=== PATIENT | male | born 1975 | race Caucasian/White ===

== ENCOUNTER 2020-04-24 11:37 | Outpatient (CLI) | payer BC, MEDICAID, SELFPAY ==
[2020-04-24 12:04] LABS: Hematocrit 45.8 % (40.0-54.0); Hemoglobin 15.7 g/dL (14.0-18.0); Mean Corpuscular HGB Conc 34.3 g/dL (32.0-36.0); Mean Corpuscular Hemoglobin 28.7 pg (27.0-31.0); Mean Corpuscular Volume 83.7 fL (78.0-102.0); Mean Platelet Volume 9.9 fl (8.7-11.0); Platelet Count Result 172 K/mm3 (150-420); Red Blood Count 5.47 M/mm3 (4.70-6.10); Red Cell Distribution Width 13.2 % (11.6-14.4); White Blood Count 3.4 K/mm3 (4.8-10.8)
[2020-04-24 12:08] LABS: Add Urine Microscopic? YES; Appearance Urine Clear (Clear); Bilirubin Urine Negative (Negative); Blood Urine Negative (Negative); Color Urine Yellow (Yellow); Glucose Urine UA 3+ (Negative); Ketones Urine 2+ (Negative); Leukocyte Esterase Ur Negative (Negative); Nitrate Urine Negative (Negative); Protein Urine Trace (Negative); Specific Grav Ur 1.015 (1.010-1.020); Urobilinogen Urine 0.2 mg/dL (0.2-1.0)
[2020-04-24 12:24] LABS: Bacteria Urine None seen /hpf; RBC Urine None seen /hpf (0-2); Squamous Epithelial Cell Urine Rare /hpf (Few); WBC Urine None seen /hpf (0-3)
[2020-04-24 12:40] LABS: Band Neutrophils Percent 0 % (0-6); Basophils Percent Manual 0 % (0-1); Eosinophils Percent Manual 0 % (1-6); Lymphocytes Absolute Manual 1.15 K/mm3 (1.1-4.5); Lymphocytes Percent Manual 34 % (18-44); Monocytes Percent Manual 12 % (3-9); Neutrophils Absolute Manual 1.83 K/mm3 (1.3-6.7); Neutrophils Percent Manual 54 % (46-73); Total Cells Counted 100
[2020-04-24 12:41] LABS: Platelet Estimate Adequate (Adequate)
[2020-04-24 12:57] LABS: Hemoglobin A1C 12.1 % (<5.7)
[2020-04-24 13:03] LABS: MALB Creatinine Ratio 277.7 mg/g (0-30); Microalbumin Urine Random 133.3 mg/L
[2020-04-24 13:25] LABS: Alanine Aminotransferase 224 U/L (16-63); Albumin Level 3.7 g/dL (3.4-5.0); Alkaline Phosphatase 121 U/L (46-116); Anion Gap 9.6 mmol/L (7-16); Aspartate Amino Transferase 189 U/L (15-37); Bilirubin,Total 1.7 mg/dL (0.00-1.00); Blood Urea Nitrogen 9 mg/dL (7-18); Calcium 8.4 mg/dL (8.5-10.1); Carbon Dioxide 35 mmol/L (21-32); Chloride 97 mmol/L (98-108); Cholesterol 145 mg/dL (0-200); Estimated Glomerular Filt Rate > 60; Glucose 333 mg/dL (70-99); HDL Direct 34 mg/dL (40-60); LDL Cholesterol Calculated 91 mg/dL (<130); Osmolality Calculated 297 mOsm/kg (285-295); Potassium 3.6 mmol/L (3.5-5.1); Sodium 138 mmol/L (136-145); Thyroid Stimulating Hormone 1.39 uIU/mL (0.36-3.74); Total Protein 6.6 g/dL (6.4-8.2); Triglycerides 102 mg/dL (0-150)
== END 2020-04-24 11:38 | disposition home or self-care (01) ==
LOC: CHSLAB 11:42
PROVIDERS: PCP Family Medicine; Visit Provider Family Medicine
DX: E78.2 Mixed hyperlipidemia (principal); E11.9 Type 2 diabetes mellitus without complications; I10 Essential (primary) hypertension; D64.9 Anemia, unspecified
CPT/HCPCS: 36415; 80053; 80061; 81001; 82043; 83036; 84443; 85025

== ENCOUNTER 2021-01-21 10:31 | Outpatient (CLI) | payer BC, MEDICAID, SELFPAY ==
[2021-01-21 10:47] LABS: Basophils Absolute Auto 0.02 K/mm3 (0.00-0.10); Basophils Percent Auto 0.5 % (0.0-1.0); Eosinophils Absolute Auto 0.14 K/mm3 (0.02-0.50); Eosinophils Percent Auto 3.4 % (1.0-6.0); Hematocrit 42.6 % (40.0-54.0); Hemoglobin 14.4 g/dL (14.0-18.0); Immature Granulocyte Absolute 0.01 K/mm3 (0.00-0.00); Immature Granulocyte Percent A 0.2 % (0.0-0.0); Lymphocytes Absolute Auto 1.39 K/mm3 (1.10-4.50); Lymphocytes Percent Auto 33.6 % (18.0-42.0); Mean Corpuscular HGB Conc 33.8 g/dL (32.0-36.0); Mean Corpuscular Hemoglobin 29.2 pg (27.0-31.0); Mean Corpuscular Volume 86.4 fL (78.0-102.0); Monocytes Absolute Auto 0.42 K/mm3 (0.10-0.90); Monocytes Percent Auto 10.1 % (2.0-11.0); Neutrophils Absolute Auto 2.2 K/mm3 (1.7-7.2); Neutrophils Percent Auto 52.2 % (50.0-70.0); Platelet Count Result 205 K/mm3 (150-420); Red Blood Count 4.93 M/mm3 (4.70-6.10); Red Cell Distribution Width 14.1 % (11.6-14.4); White Blood Count 4.1 K/mm3 (4.8-10.8)
[2021-01-21 11:56] LABS: Alanine Aminotransferase 82 U/L (16-63); Albumin Level 4.1 g/dL (3.4-5.0); Alkaline Phosphatase 82 U/L (46-116); Anion Gap 10 mmol/L (8-16); Aspartate Amino Transferase 44 U/L (15-37); Bilirubin,Total 1.5 mg/dL (0.00-1.00); Blood Urea Nitrogen 11 mg/dL (7-18); Calcium 8.5 mg/dL (8.5-10.1); Carbon Dioxide 33 mmol/L (21-32); Chloride 101 mmol/L (98-108); Estimated Glomerular Filt Rate > 60; Glucose 134 mg/dL (70-99); Osmolality Calculated 299 mOsm/kg (285-295); Potassium 3.2 mmol/L (3.5-5.1); Sodium 144 mmol/L (136-145); Total Protein 6.9 g/dL (6.4-8.2)
[2021-01-21 16:49] LABS: Bilirubin Direct 0.3 mg/dL (0-0.2)
== END 2021-01-21 10:32 | disposition home or self-care (01) ==
LOC: CHSLAB 10:34
PROVIDERS: PCP Family Medicine; Visit Provider Family Medicine
DX: E11.9 Type 2 diabetes mellitus without complications (principal); M79.89 Other specified soft tissue disorders
CPT/HCPCS: 36415; 80053; 82248; 83036; 85025

== ENCOUNTER 2022-07-29 07:51 | Outpatient (CLI) | payer OTHER, SELFPAY ==
--- NOTE | 2022-08-11 20:23 | WPDHOMESLEEP ---
Sleep Study - Home Unattended Date of Study: 07/29/22 Ordering Provider: Sunshine Fishman DO Interpreting Provider: Sunshine Fishman DO Home Sleep Study Type: Apnea Link Air Height: 1.7 m Weight: 167.829 kg Body Mass Index: 57.9 Neck Circumference (inches): 20 [place]: 5 Reason for Sleep Study Snoring, witnessed apneas Sleep History The patient is a 46-year-old male with anxiety, type 2 diabetes depression, hypertension and history of tobacco use had a sleep study ordered for evaluation sleep the patient denies awakening from sleep short of breath. He occasionally awakens at night with heartburn, belching or cough. He constantly snores and is frequently loud enough that others complain. He rarely has trouble sleeping when he has a cold. He denies waking up gasping for air throughout the night. He frequently has breathing problems at night observed by himself or others. He occasionally sweats excessively at night. He rarely has heart palpitations or irregular heartbeats during the night. He denies falling asleep during the day and while driving. He denies sleep paralysis, cataplexy and hypnagogic / hypnopompic hallucinations. He occasionally has trouble at school or work due to sleepiness. He denies feeling afraid of going to sleep he denies having nightmares. He rarely remembers his dreams. He occasionally has thoughts racing through his mind. He occasionally feels sad or depressed and frequently has anxiety. He occasionally has muscular tension. He rarely notices parts of his body jerk. He occasionally kicks during the night. He frequently has crawling and aching feelings in his legs as well as leg pain during the night. He denies grinding his teeth during sleep but rarely awakens morning jaw pain. He is occasionally bothered by pain during the day but rarely awakened by pain during the night. He constantly wakes up feeling stiff in the morning. He constantly wakes up with sore achy muscles. He frequently wakes up with pain neck spine or other joints. He goes to bed between 9-11 p.m. on weekdays and between 11:00 p.m. to midnight on the weekends. Amount of time it takes for him to fall asleep is variable. He wakes up 1-3 times throughout the night to urinate. The amount of time it takes him to fall back asleep is variable. He wakes up at 7:00 a.m. on weekdays and at 9:00 a.m. on the weekends. He typically gets 4-6 hours of sleep per night. He will stay in bed for 10-20 minutes after waking up in the morning. He currently lives with his and 3 children. He denies consuming any caffeinated beverages within 2 hours of bedtime. He denies engaging in physical exercise before bedtime. He will read and watch television before falling asleep. He denies taking naps afternoon or the evening He drinks 2-3 caffeinated beverages per day. He quit smoking over 10 years ago. He denies alcohol and recreational drug use. [facility] Past Medical History Medical History Anxiety Diabetes type 2, controlled Hypertension Family History Family History Father Cerebrovascular accident Hypertension Social History Social History Smoking status: Former smoker Alcohol intake: current Alcohol use details: very rarely Substance use: never Additional occupation/education comments: self employed Agree to blood products: Yes Medications Home Medications Medication Instructions Recorded Confirmed Type amlodipine 10 mg tablet 10 mg PO DAILY #90 tabs 07/06/22 08/06/22 Rx betamethasone valerate 0.1 % 1 applic topical BID PRN rash #45 07/06/22 08/06/22 Rx topical cream grams chlorthalidone 25 mg tablet 25 mg PO DAILY #90 tabs 07/06/22 08/06/22 Rx losartan 50 mg tablet 50 mg PO DAILY #90 tabs 07/06/22 08/06/22 Rx metformin 1,000 mg tablet 1,0
[2022-08-11 20:36] VITALS: BMI 57.9
--- NOTE | 2023-01-08 14:55 | SLEEP ---
NEW CALLS [id number]
== END 2022-07-30 15:15 | disposition home or self-care (01) ==
LOC: ANHCSM 07:52
PROVIDERS: PCP Family Medicine; Visit Provider Family Medicine
DX: G47.33 Obstructive sleep apnea (adult) (pediatric) (principal)
CPT/HCPCS: 95806

== ENCOUNTER → 2022-08-06 08:51 | Outpatient (CLI) | payer OTHER, SELFPAY ==
--- NOTE | ~2022-08-06 | XR_ITS ---
EXAM: XR lumbar spine min 4V DATE: 08/06/2022 09:13 HISTORY: M54.9 - Dorsalgia, unspecified, no injury, pain x 2wks . COMPARISON: None available. FINDINGS: 5 nonrib-bearing lumbar-type vertebral bodies. Exaggerated lumbar lordosis. Pedicles intac t. 3 mm anterolisthesis at L5-S1. Mild vertebral body height loss at L5. Multilevel disc space narrow ing and moderate marginal osteophytosis. Moderate disc narrowing and vacuum phenomenon L5-S1. Multile lev facet hypertrophy and sclerosis. No fracture or dislocation. IMPRESSION: Grade 1 anterolisthesis at L5-S1. Multilevel lumbar degenerative disc disease, severe at L5-S1. Multilevel facet arthropathy. Reviewed, dictated and finalized at location K. IMPRESSION: Grade 1 anterolisthesis at L5-S1. Multilevel lumbar degenerative di sc disease, severe at L5-S1. Multilevel facet arthropathy.
--- NOTE | ~2022-08-06 | XR_ITS ---
EXAM: XR knee RT min 4V, XR knee LT min 4V DATE: 08/06/2022 09:14 HISTORY: M25.569 - Pain in unspecified knee. no inj, diffuse pain . COMPARISON: None available. FINDINGS: Normal mineralization. No fracture or dislocation. No lytic or blastic lesion. Mild medial and lateral joint space narrowing. Mild osteophytosis in all 3 compartments. Chondrocalcinosis. No e rosion or periosteal change. Soft tissues within normal limits. Small volume left knee joint effusion . IMPRESSION: Mild tricompartmental arthritic changes in both knees. Chondrocalcinosis as can be seen i n CPPD. Reviewed, dictated and finalized at location K. IMPRESSION: Mild tricompartmental arthritic changes in both knees. Chondrocalci nosis as can be seen in CPPD.
== END ==
PROVIDERS: PCP Family Medicine; Visit Provider Family Medicine
DX: M51.37 Other intervertebral disc degeneration, lumbosacral region (principal); M17.0 Bilateral primary osteoarthritis of knee
CPT/HCPCS: 72110; 73564

== ENCOUNTER 2022-08-28 07:47 | Outpatient (CLI) | payer OTHER, SELFPAY ==
--- NOTE | 2022-09-21 18:46 | WPDSLEEPSTUD ---
Sleep Study Date of Study: 08/28/22 Ordering Provider: Sunshine Fishman DO Interpreting Physician: Sunshine Fishman DO Sleep Study Type: BiPAP Titration Height: 1.7 m Weight: 169.644 kg Body Mass Index: 58.6 Neck Circumference (inches): 20 [place]: 4 Reason for Sleep Study The patient had a home sleep test on 07/29/2022 that showed an AHI of 32 with desaturation down to 77%. It was recommended that he have a PAP Titration study. Sleep History The patient is a 46-year-old male with anxiety, type 2 diabetes depression, hypertension and history of tobacco use had a sleep study ordered for evaluation sleep the patient denies awakening from sleep short of breath.? He occasionally awakens at night with heartburn, belching or cough.? He constantly snores and is frequently loud enough that others complain.? He rarely has trouble sleeping when he has a cold.? He denies waking up gasping for air throughout the night.? He frequently has breathing problems at night observed by himself or others.? He occasionally sweats excessively at night.? He rarely has heart palpitations or irregular heartbeats during the night.? He denies falling asleep during the day and while driving.? He denies sleep paralysis, cataplexy and hypnagogic / hypnopompic hallucinations.? He occasionally has trouble at school or work due to sleepiness.? He denies feeling afraid of going to sleep he denies having nightmares.? He rarely remembers his dreams.? He occasionally has thoughts racing through his mind.? He occasionally feels sad or depressed and frequently has anxiety.? He occasionally has muscular tension.? He rarely notices parts of his body jerk.? He occasionally kicks during the night.? He frequently has crawling and aching feelings in his legs as well as leg pain during the night.? He denies grinding his teeth during sleep but rarely awakens morning jaw pain.? He is occasionally bothered by pain during the day but rarely awakened by pain during the night.? He constantly wakes up feeling stiff in the morning.? He constantly wakes up with sore achy muscles.? He frequently wakes up with pain neck spine or other joints.? He goes to bed between 9-11 p.m. on weekdays and between 11:00 p.m. to midnight on the weekends.? Amount of time it takes for him to fall asleep is variable.? He wakes up 1-3 times throughout the night to urinate.? The amount of time it takes him to fall back asleep is variable.? He wakes up at 7:00 a.m. on weekdays and at 9:00 a.m. on the weekends.? He typically gets 4-6 hours of sleep per night.? He will stay in bed for 10-20 minutes after waking up in the morning.? He currently lives with his and 3 children.? He denies consuming any caffeinated beverages within 2 hours of bedtime.? He denies engaging in physical exercise before bedtime.? He will read and watch television before falling asleep.? He denies taking naps afternoon or the evening He drinks 2-3 caffeinated beverages per day.? He quit smoking over 10 years ago.? He denies alcohol and recreational drug use. [facility] Past Medical History Medical History Anxiety Diabetes type 2, controlled Hypertension Family History Family History Father Cerebrovascular accident Hypertension Social History Social History Smoking status: Former smoker Alcohol intake: current Alcohol use details: very rarely Substance use: never Additional occupation/education comments: self employed Agree to blood products: Yes Medications Home Medications Medication Instructions Recorded Confirmed Type amlodipine 10 mg tablet 10 mg PO DAILY #90 tabs 07/06/22 08/06/22 Rx betamethasone valerate 0.1 % 1 applic topical BID PRN rash #45 07/06/22 08/06/22 Rx topical cream grams chlorthalidone 25 mg tablet 25 mg PO DAILY #90 tabs 07/06/22
[2022-09-21 18:54] VITALS: BMI 58.6
== END 2022-08-29 07:40 | disposition home or self-care (01) ==
PROVIDERS: PCP Family Medicine; Visit Provider Family Medicine
DX: G47.33 Obstructive sleep apnea (adult) (pediatric) (principal)
CPT/HCPCS: 95811

== ENCOUNTER 2022-09-21 09:33 | Outpatient (CLI) | payer OTHER, SELFPAY ==
--- NOTE | ~2022-09-21 | MR_ITS ---
EXAMINATION: MR lumbar spine wo con DATE: 09/21/2022 10:23 INDICATION: Severe degenerative disc disease at L5-S1. TECHNIQUE: Magnetic resonance imaging (MRI) of the lumbar spine was performed without intravenous con trast. Sequences included sagittal T2-weighted FSE, sagittal T2-weighted FS FSE, sagittal T1-weighted FSE, and axial T2-weighted FSE. COMPARISON: None FINDINGS: 7 degrees lumbar levocurvature. 1-2 mm retrolisthesis L1 on L2 and L2 on L3 and 2 mm anterolisthesis L5 on S1. Bilateral L5 pars intra-articular is defects. Likely physiologic mild anterior wedging at T 12 and L1. Moderate to severe disc height loss with fibrofatty degenerative endplate changes at L5-S1 . Otherwise normal marrow signal throughout. Moderate disc height loss at L4-L5. Mild disc height los s at T11-T12 through L1-L2. The conus medullaris terminates at T12-L1. There is normal signal in the caudal spinal cord. Paravertebral soft tissues are unremarkable. The following disc levels are specif ically discussed: T12-L1: Annular fissure with large central to left paracentral disc extrusion with disc material exte nding up to 2 cm caudal to the level of the superior endplate of L1 and measuring up to 1.4 cm left t o right and 5 mm AP. There is moderate bilateral facet joint osteoarthritis. There is no neural martir inal stenosis. There is mild central canal stenosis. L1-L2: Disc is mildly bulging with additional annular fissure and smaller disc extrusion with disc ma terial extending up to 4 mm caudal to the level of the superior endplate of L2. There is bilateral fa cet joint osteoarthritis. There is moderate left and mild to moderate right neural foraminal stenosis . There is mild to moderate central canal stenosis. There is also mild narrowing of the lateral reces ses, left greater than right. L2-L3: Disc is mildly bulging. There is mild hypertrophy of the ligamentum flavum. There is moderate right and mild to moderate left facet joint osteoarthritis. There is moderate bilateral neural forami nal stenosis. There is mild central canal stenosis. L3-L4: Moderate disc bulge. There is mild hypertrophy of the ligamentum flavum. There is mild left an d mild to moderate right facet joint osteoarthritis. There is mild to moderate bilateral neural martir inal stenosis. There is mild central canal stenosis. L4-L5: Annular fissure and broad-based disc extrusion extending from foraminal zone to foraminal zone with disc material extending up to 2-3 mm caudal to the level of the superior endplate of L5. There is hypertrophy of the ligamentum flavum. There is moderate bilateral facet joint osteoarthritis. The re is no neural foraminal stenosis. There is mild to moderate stenosis of the central canal as well a s the left and right lateral recesses. L5-S1: Annular fissure and broad-based disc extrusion extending from foraminal zone to foraminal zone with disc material extending up to 2-3 mm cephalad to the level of the inferior endplate of L5. Ther e is old right and mild to moderate left facet joint osteoarthritis. There is moderate right and mode rate to severe left neural foraminal stenosis. There is mild central canal stenosis. There is also na rrowing of the lateral recesses, moderate on the left and mild on the right. IMPRESSION: 1. Lumbar levocurvature with moderate to severe spondylosis. 2. L5 spondylolysis with bilateral pars intra-articular is defects and 2 mm anterolisthesis on S1. Reviewed, dictated and finalized at location A. REPRESENTATIVE IMPRESSION: 1. Lumbar levocurvature with moderate to severe spondylosis. 2. L5 spondylolysis with bilateral pars intra-articular is defects and 2 mm ant erolisthesis on S1.
== END 2022-09-21 09:34 | disposition home or self-care (01) ==
LOC: ANHIMG 09:35
PROVIDERS: PCP Family Medicine; Visit Provider Family Medicine
DX: M51.37 Other intervertebral disc degeneration, lumbosacral region (principal); M47.896 Other spondylosis, lumbar region
CPT/HCPCS: 72148

== ENCOUNTER 2022-11-04 09:22 | Outpatient (CLI) | payer OTHER, SELFPAY ==
[2022-11-04 19:50] LABS: Basophils Percent Auto 0.4 % (0.2-1.2); Eosinophils Absolute Auto 0.1 K/mm3 (0-0.3); Eosinophils Percent Auto 2.8 % (0-4.4); Hematocrit 45.5 % (42.0-52.0); Hemoglobin 14.9 g/dL (14.0-18.0); Immature Granulocyte Absolute 0.01 K/mm3 (0.00-0.031); Immature Granulocyte Percent A 0.2 % (0-0.5); Lymphocytes Absolute Auto 1.59 K/mm3 (0.9-3.2); Lymphocytes Percent Auto 31.5 % (18.3-44.2); Mean Corpuscular HGB Conc 32.7 g/dl (32-36); Mean Corpuscular Hemoglobin 28.4 pg (26-34); Mean Corpuscular Volume 86.7 fl (80-100); Mean Platelet Volume 10.1 fl (7.4-10.4); Monocytes Absolute Auto 0.5 K/mm3 (0.1-0.6); Monocytes Percent Auto 8.9 % (2.6-8.5); Neutrophils Absolute Auto 2.8 K/mm3 (1.3-6.7); Neutrophils Percent Auto 56.2 % (45.5-73.1); Platelet Count Result 221 k/mm3 (150-375); Red Blood Count 5.25 M/mm3 (4.6-6.20); Red Cell Distribution Width 15.2 % (11.5-14.5)
[2022-11-04 21:35] LABS: Free T4 Free Thyroxine 1.53 ng/mL (0.78-2.19); Vitamin D 25 Hydroxy 24.6 ng/mL
[2022-11-04 21:37] LABS: Alanine Aminotransferase 36 U/L (6-50); Albumin Level 4.4 g/dL (3.5-5.1); Alkaline Phosphatase 78 U/L (38-126); Anion Gap 7 mmol/L (8-16); Aspartate Amino Transferase 43 U/L (17-59); Bilirubin,Total 1.1 mg/dL (0.2-1.3); Blood Urea Nitrogen 13 mg/dL (9-20); Calcium 8.8 mg/dL (8.4-10.2); Carbon Dioxide 33 mmol/L (22-30); Chloride 102 mmol/L (98-107); Cholesterol 207 mg/dL (0-200); Estimated Glomerular Filt Rate > 60; Glucose 115 mg/dL (65-110); HDL Direct 46 mg/dL; Potassium 3.3 mmol/L (3.4-5.0); Sodium 142 mmol/L (137-145); Triglycerides 85 mg/dL (<150)
[2022-11-04 21:48] LABS: LDL Cholesterol Direct 124 mg/dL
[2022-11-04 22:18] LABS: Thyroid Stimulating Hormone 0.943 uIU/mL (0.465-4.680)
[2022-11-04 22:34] LABS: Hemoglobin A1C 5.4 % (<5.7)
== END 2022-11-04 09:23 | disposition home or self-care (01) ==
LOC: ANHGOSHLAB 09:24
PROVIDERS: PCP Family Medicine; Visit Provider Family Medicine
DX: E55.9 Vitamin D deficiency, unspecified (principal); R53.83 Other fatigue; E11.9 Type 2 diabetes mellitus without complications
CPT/HCPCS: 36415; 80053; 80061; 82306; 83036; 84439; 84443; 85025

== ENCOUNTER 2022-11-05 13:42 | Outpatient (NON) | payer OTHER, SELFPAY ==
[2022-11-05 19:32] LABS: Creatinine Urine 72.3 mg/dL
[2022-11-05 19:36] LABS: MALB Creatinine Ratio 78.4 mg/g (0-30); Microalbumin Urine Random 56.7 mg/L (0-16.7)
== END 2022-11-05 13:43 | disposition home or self-care (01) ==
LOC: ANHGOSHLAB 13:44
PROVIDERS: PCP Family Medicine; Visit Provider Family Medicine
DX: E11.9 Type 2 diabetes mellitus without complications (principal)
CPT/HCPCS: 82043

== ENCOUNTER 2022-11-19 10:50 | Outpatient (RCR) | payer OTHER, SELFPAY ==
--- NOTE | 2022-11-19 16:29 | PTOPEVAL1 ---
Assessment and note entered by Ilana Valdes, PT, DPT Evaluation Information Assessment Status Evaluation Diagnosis lumbar radiculopathy Onset 6 months Subjective Information Pt report mild chronic back pain. He reports a 6 months history of increased LE strength and now numbness and tingling. He report rare mild weakness. He states he has been using a cane for 1 -2 months now d/t feeling unstable on his feet because the numbness. Diabetic neuropathy has been ruled out d/t good A1c levels. He states he was recently admitted to [facility] for this issue and was discharged without many answers. He reports multiple falls in the last 2 months, averaging 1-2 a week with the most recent yesterday morning. He is able to get up from the floor from his own. He states he is currently unable to drive d/t not being able to feel the peddles. Pt states 9 months ago he was completely IND, around jul he noticed increased weakness, then in oct he experienced rapid numbness and weakness. Reported Pain Level Pain Score 0: Self Report Assessment PT Clinical Summary Eddie Jha presents to therapy for his initial evaluation with diagnosis of chronic low back pain. Today he demonstrates decreased functional strength of his precious LEs, decreased sensation of his lower legs precious, and decreased static standing balance. Pt reports rapid progression of symptoms without a known cause. During today assessment the patient pain nor sensation was able to be recreated or modified, he reports pins and needles sensation in his precious lower legs 100% of the time though the intensity varies. He reports at least 1 fall a week for the last month. Abhijeet will benefit from skilled physical therapy to address balance deficits, to educate on skin health d/t poor sensation, to help minimize fall risk, to promote improved LE strength, and to promote independence with functional mobility. Plan of Care Interventions Gait Training,Manual Therapy,Neuro Re-education, Patient/Caregiver Educati,Therapeutic Activities, Therapeutic Exercise PT Services Indicated Yes Treatment Frequency and 2x/wk for 3 wks Duration These treatments will address the objective and functional deficits as defined above. The patient will be advanced safely and appropriately in order for the patient to progress towards his/her prior level of function. Additional exerci
--- NOTE | 2022-11-26 08:55 | PCPTNOTE ---
Patient called & cancelled scheduled appointment this date due to having another fall. He states he sprained his ankle.
--- NOTE | 2022-11-28 08:06 | PCPTNOTE ---
Patient called & cancelled scheduled appointment this date due to having a fall earlier this week and hurting his ankle.
--- NOTE | 2022-12-02 09:48 | PCPTNOTE ---
Patient called & cancelled scheduled appointment this date 12/02 and 12/04 due to still being unable to attend d/t a sprained ankle.
--- NOTE | 2022-12-08 08:56 | PCPTNOTE ---
Patient called & cancelled scheduled re-evaluation this date due to having an ankle fracture. Called and left voicemail for patient regarding therapy. Will continue to follow.
--- NOTE | 2023-02-09 10:16 | PTOPDC ---
Assessment and note entered by Ilana Valdes, PT, DPT Evaluation Information Assessment Status Discharge - Pt Not Present Diagnosis lumbar radiculopathy Onset 6 months Subjective Information Pt returned to provider last week for follow up, he was sent to ER with concerns of cauda equina syndrome. Assessment PT Clinical Summary Pt was evaluated on 11/24/22 and did not complete any treatments d/t a fall resulting in an non weight bearing ankle fracture. He will be discharged at his time as from provider note he does not seem to be therapeutically appropriate at this time. Plan of Care PT Services Indicated Yes
== END 2023-02-09 14:52 | disposition home or self-care (01) ==
LOC: ANHGOSHPT 10:50
PROVIDERS: PCP Family Medicine; Visit Provider Family Medicine
DX: M54.50 Low back pain, unspecified (principal); G89.29 Other chronic pain
CPT/HCPCS: 97163

== ENCOUNTER 2023-02-16 08:44 | Outpatient (CLI) | payer OTHER, SELFPAY ==
[2023-02-16 20:23] LABS: Anion Gap 9 mmol/L (8-16); Blood Urea Nitrogen 24 mg/dL (9-20); Carbon Dioxide 30 mmol/L (22-30); Chloride 101 mmol/L (98-107); Estimated Glomerular Filt Rate > 60; Glucose 98 mg/dL (65-110); Magnesium 2.2 mg/dL (1.6-2.3); Potassium 3.2 mmol/L (3.4-5.0); Sodium 140 mmol/L (137-145)
== END 2023-02-16 08:45 | disposition home or self-care (01) ==
LOC: ANHGOSHLAB 08:45
PROVIDERS: PCP Internal Medicine; Visit Provider Internal Medicine
DX: I10 Essential (primary) hypertension (principal)
CPT/HCPCS: 36415; 80048; 83735

== ENCOUNTER 2024-01-12 10:12 | Outpatient (CLI) | payer OTHER, SELFPAY ==
[2024-01-12 18:46] LABS: Basophils Percent Auto 0.7 % (0.2-1.2); Eosinophils Absolute Auto 0.1 K/mm3 (0-0.3); Eosinophils Percent Auto 2.1 % (0-4.4); Hematocrit 45.5 % (42.0-52.0); Hemoglobin 15.1 g/dL (14.0-18.0); Immature Granulocyte Absolute 0.01 K/mm3 (0.00-0.031); Immature Granulocyte Percent A 0.2 % (0-0.5); Lymphocytes Percent Auto 34.6 % (18.3-44.2); Mean Corpuscular HGB Conc 33.2 g/dl (32-36); Mean Corpuscular Hemoglobin 29.4 pg (26-34); Mean Corpuscular Volume 88.5 fl (80-100); Monocytes Absolute Auto 0.4 K/mm3 (0.1-0.6); Monocytes Percent Auto 9.9 % (2.6-8.5); Neutrophils Absolute Auto 2.3 K/mm3 (1.3-6.7); Neutrophils Percent Auto 52.5 % (45.5-73.1); Platelet Count Result 216 k/mm3 (150-375); Red Blood Count 5.14 M/mm3 (4.6-6.20); White Blood Count 4.3 K/mm3 (4.5-10.0)
[2024-01-12 19:05] LABS: Rheumatoid Factor < 12.0 IU/ML (<12)
[2024-01-12 19:10] LABS: Alanine Aminotransferase 24 U/L (6-50); Albumin Level 4.1 g/dL (3.5-5.1); Alkaline Phosphatase 60 U/L (38-126); Anion Gap 3 mmol/L (8-16); Aspartate Amino Transferase 43 U/L (17-59); Bilirubin,Total 1.2 mg/dL (0.2-1.3); Blood Urea Nitrogen 21 mg/dL (9-20); CRP 0.5 mg/dL (<1.0); Calcium 9.6 mg/dL (8.4-10.2); Carbon Dioxide 36 mmol/L (22-30); Chloride 102 mmol/L (98-107); Estimated Glomerular Filt Rate > 60; Glucose 86 mg/dL (65-110); Potassium 3.4 mmol/L (3.4-5.0); Sodium 141 mmol/L (137-145)
[2024-01-12 19:49] LABS: Vitamin D 25 Hydroxy 26.6 ng/mL
[2024-01-12 20:00] LABS: Creatinine Urine 248.3 mg/dL
[2024-01-12 20:04] LABS: Microalbumin Urine Random 47.2 mg/L (0-16.7)
[2024-01-12 20:24] LABS: Hemoglobin A1C 4.4 % (<5.7)
[2024-01-16 12:25] LABS: Testosterone Free 62.1 pg/mL (35.0-155.0); Testosterone Total 485 ng/dL (250-1100)
[2024-01-18 10:07] LABS: ANA Cascade Screen Negative (Negative)
== END 2024-01-12 10:13 | disposition home or self-care (01) ==
LOC: ANHGOSHLAB 10:13
PROVIDERS: PCP Internal Medicine; Visit Provider Clinical Nurse Specialist
DX: R53.83 Other fatigue (principal); E55.9 Vitamin D deficiency, unspecified; I10 Essential (primary) hypertension; M79.10 Myalgia, unspecified site; E11.9 Type 2 diabetes mellitus without complications
CPT/HCPCS: 36415; 80053; 82043; 82306; 83036; 84402; 84403; 84443; 85025; 86038; 86140; 86225; 86235; 86364; 86430

== ENCOUNTER 2024-06-01 09:46 | Outpatient (CLI) | payer OTHER, SELFPAY ==
[2024-06-01 13:22] LABS: Basophils Percent Auto 0.7 % (0.2-1.2); Eosinophils Absolute Auto 0.2 K/mm3 (0-0.3); Eosinophils Percent Auto 3.4 % (0-4.4); Hematocrit 42.2 % (42.0-52.0); Hemoglobin 14.6 g/dL (14.0-18.0); Lymphocytes Absolute Auto 1.53 K/mm3 (0.9-3.2); Lymphocytes Percent Auto 34.7 % (18.3-44.2); Mean Corpuscular HGB Conc 34.6 g/dl (32-36); Mean Corpuscular Hemoglobin 30.2 pg (26-34); Mean Corpuscular Volume 87.4 fl (80-100); Monocytes Absolute Auto 0.5 K/mm3 (0.1-0.6); Monocytes Percent Auto 10.4 % (2.6-8.5); Neutrophils Absolute Auto 2.2 K/mm3 (1.3-6.7); Neutrophils Percent Auto 50.8 % (45.5-73.1); Platelet Count Result 232 k/mm3 (150-375); Red Blood Count 4.83 M/mm3 (4.6-6.20); Red Cell Distribution Width 14.3 % (11.5-14.5); White Blood Count 4.4 K/mm3 (4.5-10.0)
[2024-06-01 13:32] LABS: Alanine Aminotransferase 22 U/L (6-50); Albumin Level 4.2 g/dL (3.5-5.1); Alkaline Phosphatase 61 U/L (38-126); Anion Gap 7 mmol/L (4-12); Aspartate Amino Transferase 32 U/L (17-59); Bilirubin,Total 1.2 mg/dL (0.2-1.3); Blood Urea Nitrogen 17 mg/dL (9-20); Calcium 8.8 mg/dL (8.4-10.2); Carbon Dioxide 33 mmol/L (22-30); Chloride 102 mmol/L (98-107); Cholesterol 163 mg/dL (0-200); Estimated Glomerular Filt Rate > 60; Glucose 86 mg/dL (65-110); HDL Direct 45 mg/dL; Potassium 3.3 mmol/L (3.4-5.0); Sodium 142 mmol/L (137-145); Triglycerides 62 mg/dL (<150)
[2024-06-01 13:46] LABS: LDL Cholesterol Direct 98 mg/dL
[2024-06-01 13:55] LABS: Creatinine Urine 127.2 mg/dL
[2024-06-01 13:59] LABS: Hemoglobin A1C 4.7 % (<5.7); MALB Creatinine Ratio 22.8 mg/g (0-30)
== END 2024-06-01 09:47 | disposition home or self-care (01) ==
LOC: ANHGOSHLAB 09:47
PROVIDERS: PCP Internal Medicine; Visit Provider Internal Medicine
DX: R53.83 Other fatigue (principal); E11.9 Type 2 diabetes mellitus without complications; I10 Essential (primary) hypertension
CPT/HCPCS: 36415; 80053; 80061; 82043; 83036; 85025

== ENCOUNTER 2024-09-27 12:30 | Outpatient (CLI) | payer OTHER, SELFPAY ==
--- NOTE | 2024-09-27 14:15 | NEURO_ITS ---
Impression: # Complains of numbness of feet. # No sensory responses obtained. Sensory axonal neuropathy. # Normal motor Nerve Conduction Study. # Normal needle/EMG exam. Nerve Conduction Studies Anti Sensory Summary Table Stim Site NR Peak (ms) P-T Amp (?V) Site1 Site2 Delta-P (ms) Dist (cm) Joaquin (m/s) Left Sup Fibular Anti Sensory (Ant Lat Mall) NO RESPONSE 14 cm NR 14 cm Ant Lat Mall 16.0 Right Sup Fibular Anti Sensory (Ant Lat Mall) NO RESPONSE 14 cm NR 14 cm Ant Lat Mall 16.0 Left Sural Anti Sensory (Lat Mall) NO RESPONSE Calf NR Calf Lat Mall 16.0 Right Sural Anti Sensory (Lat Mall) NO RESPONSE Calf NR Calf Lat Mall 16.0 Motor Summary Table Stim Site NR Onset (ms) O-P Amp (mV) Site1 Site2 Delta-0 (ms) Dist (cm) Joaquin (m/s) Left Peroneal Motor (Vastus Med) Ankle 3.8 3.8 Popit Ankle 7.9 40.0 51 Popit 11.7 2.5 Right Peroneal Motor (Vastus Med) Ankle 4.1 3.3 Popit Ankle 8.1 38.0 47 Popit 12.2 2.6 Left Tibial Motor (Abd Lockwood Brev) Ankle 4.5 2.8 Knee Ankle 8.9 43.0 48 Knee 13.4 1.2 Right Tibial Motor (Abd Lockwood Brev) Ankle 4.6 3.5 Knee Ankle 8.4 39.0 46 Knee 13.0 3.9 F Wave Studies NR F-Lat (ms) L-R F-Lat (ms) Left Peroneal (Mrkrs) (EDB) 49.26 2.77 Right Peroneal (Mrkrs) (EDB) 52.03 2.77 Left Tibial (Mrkrs) (Abd Hallucis) 51.46 0.00 Right Tibial (Mrkrs) (Abd Hallucis) 51.46 0.00 EMG Side Muscle Nerve Root Ins Act Fibs Amp Dur Recrt Comment Right AntTibialis Dp Br Fibular L4-5 Nml Nml Nml Nml Nml Right Gastroc Tibial S1-2 Nml Nml Nml Nml Nml Right Fibularis Long Sup Br Fibular L5-S1 Nml Nml Nml Nml Nml Right Flex Dig Long Tibial L5-S2 Nml Nml Nml Nml Nml Right Ext Dig Brev Dp Br Fibular L5, S1 Nml Nml Nml Nml Nml Right QuadratusFem QuadFemoris L4-5, S1 Nml Nml Nml Nml Nml Left AntTibialis Dp Br Fibular L4-5 Nml Nml Nml Nml Nml Left Gastroc Tibial S1-2 Nml Nml Nml Nml Nml Left Fibularis Long Sup Br Fibular L5-S1 Nml Nml Nml Nml Nml Left Flex Dig Long Tibial L5-S2 Nml Nml Nml Nml Nml Left Ext Dig Brev Dp Br Fibular L5, S1 Nml Nml Nml Nml Nml Left QuadratusFem QuadFemoris L4-5, S1 Nml Nml Nml Nml Nml MTDD
== END 2024-09-27 12:31 | disposition home or self-care (01) ==
PROVIDERS: PCP Internal Medicine; Visit Provider Internal Medicine
DX: R20.2 Paresthesia of skin (principal); R26.9 Unspecified abnormalities of gait and mobility; M47.816 Spondylosis without myelopathy or radiculopathy, lumbar region; M51.06 Intervertebral disc disorders with myelopathy, lumbar region
CPT/HCPCS: 95886; 95910

== ENCOUNTER 2025-05-22 09:28 | Outpatient (CLI) | payer OTHER, SELFPAY ==
--- OUTSIDE RECORDS SUMMARY | 2025-05-22 09:32 | XMS_ITS | Clinical Summary ---
Author Organization [facility] Address [address] [place] [address] Care Team Providers Care Receptionist Doctor'S Office Name Role Phone Sunshine Fishman DO Unavailable [phone] Pierre Dudley DO Primary Care Provider [phone] Parul Ritchie CLEANING ATTENDANT Unavailable [phone] Allergies No known active allergies Medications metoprolol XL (TOPROL-XL) 100 mg 24 hr tablet Take 100 mg by mouth daily Active amLODIPine (NORVASC) 10 mg tablet Take 10 mg by mouth daily Active metFORMIN (GLUCOPHAGE) 1,000 mg tablet Take 1,000 mg by mouth 2 (two) times a day with meals Active chlorthalidone 25 mg tablet Take 25 mg by mouth daily Active pregabalin (LYRICA) 50 mg capsule Take 50 mg by mouth 3 (three) times a day Active losartan (COZAAR) 50 mg tablet Take 50 mg by mouth daily Active betamethasone valerate (VALISONE) 0.1 % cream Apply topically 2 (two) times a day Active furosemide (LASIX) 20 mg tablet 20 mg daily 2 Active meloxicam (MOBIC) 7.5 mg tablet 7.5 mg daily as needed 3 Active Mounjaro 5 mg/0.5 mL pen injector once a week 3 Active sertraline (ZOLOFT) 100 mg tablet Take 100 mg by mouth daily 3 Active Mounjaro 7.5 mg/0.5 mL pen injector INJECT 7.5 MG (0.5 ML) SUBCUTANEOUSLY WEEKLY FOR 4 WEEKS THEN TITRATE 3 Active terbinafine (LamiSIL) 250 mg tablet 3 Active Rybelsus 7 mg tablet 3 Active Active Problems Problem Noted Date Diagnosed Date Ankle fracture, left 12/08/2022 Thoracic myelopathy 12/08/2022 Medical History Medical History Date Comments Diabetes mellitus (HCC) Hypertension Hypercholesteremia Arthritis Depression Psoriasis Social History Tobacco Use Types Packs/Day Years Used Date Smoking Tobacco: Former Cigarettes Smokeless Tobacco: Never Tobacco Cessation:Counseling Given: Not Answered Alcohol Use Standard Drinks/Week Comments Yes 0 (1 standard drink = 0.6 oz pur e alcohol) rarely Hunger Vital Sign Answer Date Recorded Within the past 12 months, y ou worried that your food would run out before you got the money to buy more. Never true 12/15/19 23 Within the past 12 months, t he food you bought just didn't last and you didn't have money to get more. Never true 12/15/2022 Personal Safety Answer Date Recorded Getting School Help Needed Not on file 12/12 Sex and Gender Information Value Date Recorded Sex Assigned at Not on file Legal Sex Male 10:11 AM [employer] Gender Identity Not on file Sexual Orientation Not on file Obstetrics History Last Filed Vital Signs Vital Sign Reading Time Taken Comments Blood Pressure 139/97 12/15/2022 10:39 AM [employer] Pulse 77 12/15/2022 10:39 AM [employer] Temperature 36.9 C (98.4 F) 12/15/2022 10:39 AM [employer]NER Respiratory Rate 16 12/15/2022 10:39 AM [employer]NER Oxygen Saturation 95% 11/07/2022 1:30 PM [employer]AW [employer]NER Inhaled Oxygen Concentration - - Weight 161.5 kg (356 lb) 01/04/2023 7:41 AM JAW SKINNER Height 170.2 cm (5' 7) 01/04/2023 7:41 AM JAW SKINNER Body Mass Index 55.76 01/04/2023 7:41 AM JAW SKINNER Plan of Treatment Health Maintenance Due Date Last Done Comments Colon Cancer Screening-Colonoscopy 1976 Depression Screening 1976 Hepatitis C Screening 1976 Hepatitis B Screening 1994 Regular Well Visit/Exam 18-64 1994 Influenza Vaccine (#1) 2025 9, 08/13/2018, 08/12/2017, Additional history exists DTaP/Tdap/Td Vaccine (2 - Td or Tdap) 12/10/2031 12/10/2021 Pneumococcal vaccine <65 Aged Out No longer eligible based on patient's age to complete this topic [place] [place] [address] [facility] [facility] Care Teams Receptionist Doctor'S Office Relationship Specialty Start Date End Date Pierre Dudley DO PCP - General Internal Medicine 12/06/22 Sunshine Fishman DO Family Medicine 11/06/22 Parul Ritchie NP Nurse Practitioner Orthopedic Surgery 12/15/22
--- OUTSIDE RECORDS SUMMARY | 2025-05-22 09:32 | XMS_ITS | Encounter Summary ---
Author Organization [facility] Address [address] [place] [address] Care Team Providers Care Pop Singer Name Role Phone Sunshine Fishman DO Primary Care Provider + Sunshine Fishman DO Unavailable [phone] Pierre Dudley DO Primary Care Provider + [phone] Parul Ritchie UKRAINIAN FOLK ARTS INSTRUCTOR Unavailable [phone] Encounter Details Date Type Department Care Team (Late st Contact Info) Description 11/28/2022 Telephone [facility] Orth[facility] Spine [address] [place] [address] 4th [address] [place] [address] Eduardo Cohen Social History Tobacco Use Types Packs/Day Years Used Date Smoking Tobacco: Former Cigarettes Smokeless Tobacco: Never Alcohol Use Standard Drinks/Week Comments Yes 0 (1 standard drink = 0.6 oz pur e alcohol) rarely Sex and Gender Information Value Date Recorded Sex Assigned at Not on file Legal Sex Male 10:11 AM EMERGENCY ROOM RN Gender Identity Not on file Sexual Orientation Not on file documented as of this encounter Plan of Treatment Not on file documented as of this encounter Visit Diagnoses Not on filedocumented in this encounter Care Teams Pop Singer Relationship Specialty Start Date End Date Sunshine Fishman DO PCP - General Family Medicine 11/06/22 12/05/22 Pierre Dudley DO PCP - General Internal Medicine 12/06/22 Sunshine Fishman DO Family Medicine 11/06/22 Parul Ritchie NP Nurse Practitioner Orthopedic Surgery 12/15/22 documented as of this encounter
--- OUTSIDE RECORDS SUMMARY | 2025-05-22 09:32 | XMS_ITS | Referral Summary ---
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 Social History Tobacco Use Types Packs/Day Years [...] on file Legal Sex Male 10:11 AM CATARACT LENS GENERATOR Gender Identity Not on file Sexual Orientation Not on file Last Filed Vital Signs Vital Sign Reading Time Taken Comments Blood Pressure 139/97 12/15/2022 10:39 AM CATARACT LENS GENERATOR Pulse 77 12/15/2022 10:39 AM CATARACT LENS GENERATOR Temperature 36.9 C (98.4 F) 12/15/2022 10:39 AM CATARACT LENS GENERATOR Respiratory Rate 16 12/15/2022 10:39 AM CATARACT LENS GENERATOR Oxygen Saturation 95% 11/07/2022 1:30 PM CATARACT LENS GENERATOR Inhaled Oxygen Concentration - - Weight 161.5 kg (356 lb) 01/04/2023 7:41 AM CATARACT LENS GENERATOR Height 170.2 cm (5' 7) 01/04/2023 7:41 AM CATARACT LENS GENERATOR Body Mass Index 55.76 01/04/2023 7:41 AM CATARACT LENS GENERATOR Plan of Treatment Not on file Insurance [facility] Member Subscriber Plan / Payer (Ef fective for All Dates) Name:Eddie Doss Member ID:Not on file Relation to Subscriber:Self Name:Eddie Doss Subscriber ID:Not on file Payer ID:[id number] Group ID:Not on file Type:[employer] HMO/PPO Address: [address] Care Teams Correctional Corporal Relationship Specialty Start Date End Date Pierre Dudley DO PCP - General Internal Medicine 12/06/22 Sunshine Fishman DO Family Medicine 11/06/22 Parul Ritchie NP Nurse Practitioner Orthopedic Surgery 12/15/22
[2025-05-22 13:45] LABS: Hematocrit 45.2 % (42.0-52.0); Hemoglobin 15.2 g/dL (14.0-18.0); Immature Granulocyte Percent A 0.0 % (0-0.5); Lymphocytes Absolute Auto 1.27 K/mm3 (0.9-3.2); Mean Corpuscular HGB Conc 33.6 g/dl (32-36); Mean Corpuscular Hemoglobin 29.3 pg (26-34); Mean Corpuscular Volume 87.3 fl (80-100); Nucleated Red Blood Cells Absolute Auto 0.000 K/mm3 (0.0-0.012); Nucleated Red Blood Cells Perc 0.0 % (0.0-0.2); Platelet Count Result 221 k/mm3 (150-375); Red Blood Count 5.18 M/mm3 (4.6-6.20); White Blood Count 3.8 K/mm3 (4.5-10.0)
[2025-05-22 13:47] LABS: Alanine Aminotransferase 27 U/L (6-50); Albumin Level 4.6 g/dL (3.5-5.1); Alkaline Phosphatase 60 U/L (38-126); Anion Gap 10 mmol/L (4-12); Aspartate Amino Transferase 51 U/L (17-59); Bilirubin,Total 1.6 mg/dL (0.2-1.3); Blood Urea Nitrogen 15 mg/dL (9-20); Calcium 10.1 mg/dL (8.4-10.2); Carbon Dioxide 33 mmol/L (22-30); Chloride 97 mmol/L (98-107); Estimated Glomerular Filt Rate > 60; Glucose 79 mg/dL (65-110); Potassium 3.0 mmol/L (3.4-5.0); Sodium 140 mmol/L (137-145); Total Protein 7.7 g/dL (6.3-8.2)
[2025-05-22 14:16] LABS: Hemoglobin A1C 4.6 % (<5.7)
[2025-05-22 14:30] LABS: Vitamin B12 411.0 pg/mL (239-931)
[2025-05-22 14:47] LABS: MALB Creatinine Ratio 16.2 mg/g (0-30)
[2025-05-23 14:08] LABS: Folate, Hemolysate 485.0 ng/mL (Not Estab.); Folate, RBC 1015 ng/mL (>498); Hematocrit 47.8 % (37.5-51.0)
[2025-05-24 15:09] LABS: Immunoglobulin A, Qn 183 mg/dL (90-386); Immunoglobulin G, Qn 782 mg/dL (603-1613); Immunoglobulin M, Qn 42 mg/dL (20-172)
== END 2025-05-22 09:29 | disposition home or self-care (01) ==
LOC: ANHGOSHLAB 09:29
PROVIDERS: Psychiatry & Neurology Neurology; PCP Internal Medicine; Visit Provider Clinical Nurse Specialist
DX: E11.40 Type 2 diabetes mellitus with diabetic neuropathy, unspecified (principal); I10 Essential (primary) hypertension
CPT/HCPCS: 36415; 80053; 82043; 82607; 82747; 82784; 83036; 83090; 83921; 84207; 84597; 85025; 86334

== ENCOUNTER 2025-05-24 09:19 | Outpatient (CLI) | payer OTHER, SELFPAY ==
--- OUTSIDE RECORDS SUMMARY | 2025-05-24 09:36 | XMS_ITS | Encounter Summary ---
Author Organization [facility] Address [address] [place] [address] Care Team Providers Care Potato Chip Maker Name Role Phone Sunshine Fishman DO Primary Care Provider + Sunshine Fishman DO Unavailable [phone] Pierre Dudley DO Primary Care Provider + [phone] Parul Ritchie PHARMACY PICKING TECH Unavailable [phone] Encounter Details Date Type Department Care Team (Late st Contact Info) Description 11/28/2022 Telephone [facility] Care [facility] Orthopedic Spine [address] [place] [address] 4th [address] [place] [address] Eduardo Cohen Social History Tobacco Use Types Packs/Day Years Used Date Smoking Tobacco: Former Cigarettes Smokeless Tobacco: Never Alcohol Use Standard Drinks/Week Comments Yes 0 (1 standard drink = 0.6 oz pur e alcohol) rarely Sex and Gender Information Value Date Recorded Sex Assigned at Not on file Legal Sex Male 10:11 AM DIE BARBER Gender Identity Not on file Sexual Orientation Not on file documented as of this encounter Plan of Treatment Not on file documented as of this encounter Visit Diagnoses Not on filedocumented in this encounter Care Teams Potato Chip Maker Relationship Specialty Start Date End Date Sunshine Fishman DO PCP - General Family Medicine 11/06/22 12/05/22 Pierre Dudley DO PCP - General Internal Medicine 12/06/22 Sunshine Fishman DO Family Medicine 11/06/22 Parul Ritchie NP Nurse Practitioner Orthopedic Surgery 12/15/22 documented as of this encounter
--- OUTSIDE RECORDS SUMMARY | 2025-05-24 09:36 | XMS_ITS | Clinical Summary ---
Author Organization [facility] Address [address] [place] [address] Care Team Providers Care Vulnerability Researcher Name Role Phone Sunshine Fishman DO Unavailable [phone] Pierre Dudley DO Primary Care Provider [phone] Parul Ritchie CDL B DRIVER Unavailable [phone] Allergies No known active allergies Medications metoprolol [...] on file Legal Sex Male 10:11 AM HOT BRAIDER Gender Identity Not on file Sexual Orientation Not on file Obstetrics History Last Filed Vital Signs Vital Sign Reading Time Taken Comments Blood Pressure 139/97 12/15/2022 10:39 AM HOT BRAIDER Pulse 77 12/15/2022 10:39 AM HOT BRAIDER Temperature 36.9 C (98.4 F) 12/15/2022 10:39 AM HOT BRAIDER Respiratory Rate 16 12/15/2022 10:39 AM HOT BRAIDER Oxygen Saturation 95% 11/07/2022 1:30 PM HOT BRAIDER Inhaled Oxygen Concentration - - Weight 161.5 kg (356 lb) 01/04/2023 7:41 AM HOT BRAIDER Height 170.2 cm (5' 7) 01/04/2023 7:41 AM HOT BRAIDER Body Mass Index 55.76 01/04/2023 7:41 AM HOT BRAIDER Plan of Treatment Health Maintenance Due Date [...] patient's age to complete this topic Insurance [address] [address] [employer] [facility] Care Teams Vulnerability Researcher Relationship Specialty Start Date End Date Pierre Dudley DO PCP - General Internal Medicine 12/06/22 Sunshine Fishman DO Family Medicine 11/06/22 Parul Ritchie NP Nurse Practitioner Orthopedic Surgery 12/15/22
--- OUTSIDE RECORDS SUMMARY | 2025-05-24 09:36 | XMS_ITS | Referral Summary ---
Author Organization [facility] Address [address] [place] [address] Care Team Providers Care Manager Internship Name Role Phone Sunshine Fishman DO Unavailable Pierre Dudley DO Primary Care Provider [phone] Parul Ritchie REED FIXER Unavailable [phone] Allergies No known active allergies Medications metoprolol [...] on file Legal Sex Male 10:11 AM PROFESSOR OF GENETICS Gender Identity Not on file Sexual Orientation Not on file Last Filed Vital Signs Vital Sign Reading Time Taken Comments Blood Pressure 139/97 12/15/2022 10:39 AM PROFESSOR OF GENETICS Pulse 77 12/15/2022 10:39 AM PROFESSOR OF GENETICS Temperature 36.9 C (98.4 F) 12/15/2022 10:39 AM PROFESSOR OF GENETICS Respiratory Rate 16 12/15/2022 10:39 AM PROFESSOR OF GENETICS Oxygen Saturation 95% 11/07/2022 1:30 PM PROFESSOR OF GENETICS Inhaled Oxygen Concentration - - Weight 161.5 kg (356 lb) 01/04/2023 7:41 AM PROFESSOR OF GENETICS Height 170.2 cm (5' 7) 01/04/2023 7:41 AM PROFESSOR OF GENETICS Body Mass Index 55.76 01/04/2023 7:41 AM PROFESSOR OF GENETICS Plan of Treatment Not on file Insurance [facility] Member Subscriber Plan / Payer (Ef fective for All Dates) Name:Eddie Doss Member ID:Not on file Relation to Subscriber:Self Name:Eddie Doss Subscriber ID:Not on file Payer ID:[id number] Group ID:Not on file Type:[employer] HMO/PPO Address: [address] Care Teams Manager Internship Relationship Specialty Start Date End Date Pierre Dudley DO PCP - General Internal Medicine 12/06/22 Sunshine Fishman DO Family Medicine 11/06/22 Parul Ritchie NP Nurse Practitioner Orthopedic Surgery 12/15/22
[2025-05-24 15:27] LABS: Anion Gap 11 mmol/L (4-12); Blood Urea Nitrogen 21 mg/dL (9-20); Calcium 10.0 mg/dL (8.4-10.2); Carbon Dioxide 32 mmol/L (22-30); Chloride 100 mmol/L (98-107); Estimated Glomerular Filt Rate > 60; Glucose 67 mg/dL (65-110); Potassium 3.1 mmol/L (3.4-5.0); Sodium 143 mmol/L (137-145)
== END 2025-05-24 09:20 | disposition home or self-care (01) ==
LOC: ANHGOSHLAB 09:20
PROVIDERS: PCP Internal Medicine; Visit Provider Clinical Nurse Specialist
DX: E87.6 Hypokalemia (principal)
CPT/HCPCS: 36415; 80048